=== PATIENT | male | born 1945 | race Caucasian/White ===

== ENCOUNTER 2018-12-29 14:35 | Emergency (ER) | payer MEDICARE, SELFPAY ==
[2018-12-29 14:39] VITALS: BP 159/103; PULSE 72; RESP 16; TEMP 36.4; O2SAT 96; BMI 34.5
--- NOTE | 2018-12-29 14:53 | DI.US.S_ITS ---
PROCEDURE: US PERIPH VENOUS LOW EXTREM LT INDICATIONS: EDEMA TECHNIQUE: Real-time imaging, as well as color and pulse Doppler interrogation, were performed of the lower extremity deep veins from the inguinal ligament to the popliteal fossa. COMPARISON: None. FINDINGS: The common femoral, femoral and popliteal veins are normally compressible, and free of intraluminal thrombus. Color and pulse Doppler demonstrate normal phasic intraluminal flow. There is normal augmentation response to distal compression maneuver. There is left lower leg superficial thrombophlebitis. IMPRESSION: No evidence of deep venous thrombosis. Superficial thrombophlebitis involving the left medial lower leg (in the region of clinical concern) Dictated by: Tom Alexander M.D. on 12/29/2018 at 15:50 Approved by: Tom Alexander M.D. on 12/29/2018 at 15:53
--- NOTE | 2018-12-29 15:12 | PC.NURSE ---
Denies chest pain, denies shortness of breath.
[2018-12-29 15:15] LABS: Add Manual Diff / Slide Review NO; Basophils Absolute Auto 100 /uL (0-100); Eosinophils Absolute Auto 100 /uL (0-450); Eosinophils Percent Auto 1.8 % (2-4); Hematocrit 43.1 % (41-53); Lymphocytes Absolute Auto 1600 /uL (1100-4500); Lymphocytes Percent Auto 21.9 % (25-40); Mean Corpuscular HGB Conc 34.8 % (30-36); Mean Corpuscular Hemoglobin 31.6 PG (26-34); Mean Corpuscular Volume 90.9 fL (80-100); Monocytes Absolute Auto 400 /uL (0-900); Monocytes Percent Auto 5.7 % (3-14); Neutrophils Absolute Auto 5100 /uL (1500-7000); Neutrophils Percent Auto 69.6 % (50-75); Platelet Count 246 X10^3/uL (150-400); Red Blood Cell Count 4.74 X10^6/uL (4.5-5.9); Red Cell Distribution Width 14.2 % (11.6-14.8); White Blood Cell Count 7.3 X10^3/uL (4.5-11.0)
[2018-12-29 15:22] LABS: INR 1.1 (0.9-1.3); Prothrombin Time 12.1 SECONDS (10.1-12.7)
[2018-12-29 15:25] LABS: PTT Partial Thromboplastin Tim 31 SECONDS (26.4-36.2)
[2018-12-29 15:26] LABS: Alanine Aminotransferase 44 IU/L (21-72); Albumin Globulin Ratio 1.4 (1.0-2.8); Alkaline Phosphatase 77 U/L (38-126); Aspartate Aminotransferase 30 IU/L (17-59); Bilirubin Total 0.5 mg/dL (0.2-1.3); Blood Urea Nitrogen 15 mg/dL (9-20); Calcium 9.6 mg/dL (8.4-10.2); Carbon Dioxide 31 mmol/L (22-32); Chloride 104 mmol/L (98-107); Estimated Glomerular Filt Rate > 60.0 mL/min (>60); Globulin 2.8 g/dL (1.7-4.1); Glucose 122 mg/dL (80-110); HEMOLYSIS 16 (0-50); Potassium 4.3 mmol/L (3.4-5.1); Sodium 139 mmol/L (137-145); Total Protein 6.8 g/dL (6.3-8.2)
--- NOTE | 2018-12-29 15:53 | ED.EXTPRO ---
HPI - Extremity Problem <Balwinder Camachodonna [facility] - Last Filed: 12/29/18 16:40> General Chief complaint: Extremity Problem,Nontraumatic Stated complaint: blood clot left leg Time Seen by Provider: 12/29/18 14:48 Source: patient Mode of arrival: Ambulatory Limitations: no limitations History of Present Illness HPI Narrative: This is a 73-year-old gentleman, nonsmoker, history of with DVTs in the past, bilateral pulmonary embolism in 2010, who presents to ED with spouse with left lower leg discomfort for last 4 days. Patient noticed left leg discomfort even while at rest since last night. Patient denies fever, chills, nausea vomiting. Patient denies chest pain or breathing difficulty. Patient has been taking EC aspirin 650 daily for Samter's Triad and after the ASA desensitization without GI irriation or bleedings. Related Data Home Medications Medication Instructions Recorded Confirmed aspirin 325 mg PO BID #0 10/06/15 fluticasone propionate [Flonase 1 spray INTRANASAL DAILY #1 bot 10/06/15 12/29/18 Allergy Relief] montelukast [Singulair] 10 mg PO DAILY #0 10/06/15 12/29/18 tamsulosin [Flomax] 0.8 mg PO DAILY #0 cap 10/06/15 12/29/18 amlodipine 5 mg PO DAILY 12/29/18 12/29/18 budesonide-formoterol [Symbicort] 1 puff INHALATION DIRECTED 12/29/18 latanoprost 1 drp OPHTHALMIC (EYE) BEDTIME 12/29/18 12/29/18 Allergies Allergy/AdvReac Type Severity Reaction Status Date / Time No Known Drug Allergies Allergy Verified 12/29/18 14:39 Review of Systems <Balwinder Camachodonna [facility] - Last Filed: 12/29/18 16:40> Review of Systems Narrative: General: Denies fever, chills, fatigue, malaise, sweats. HEENT: Denies sinus pain, ear pain, sore throat, difficulty swallowing, dizziness. Respiratory: Denies dyspnea, cough, wheezing, hemoptysis, sputum. Cardiovascular: See HPI Gastrointestinal: Denies nausea, vomiting, abdominal pain, diarrhea, constipation, melena. : Denies dysuria, frequency, incontinence, hematuria, urinary retention. Musculoskeletal: Denies weakness, joint pain or bony pain. Skin: Denies rash, skin lesions, or other. Neurologic: Denies weakness, headache, numbness, change in speech, confusion, seizures, incoordination. Psychiatric: No concerning psychosocial issues. 12-point review of systems is negative except for those stated above. Patient History <ROSE MARY Busby - Last Filed: 12/29/18 16:40> Medical History Asthma (Acute) DVT (deep venous thrombosis) (Acute) Nasal polyps (Acute) Pneumonia (Acute) Pulmonary embolism, bilateral (Acute) Surgical History History of cholecystectomy (Acute) Social History Smoking Status: Never smoker Substance Use Type: does not use Exam <ROSE MARY Busby - Last Filed: 12/29/18 16:40> Narrative Exam Narrative: General appearance: well developed, well nourished, in no acute distress. Head: normocephalic, atraumatic, no scalp lesions, non-tender. Eye: pupil equal, round. EOMI. Nose: nares patent. Oral: mucosa moist. Neck/Thyroid: neck supple, full range of motion, no visible masses. Heart: no clubbing, no cyanosis, no edema. Lungs: Breathing even and unlabored. No stridor. No accessory muscles used. Chest: normal shape and expansion. Abdomen: non-obese, non-distended. Neurologic: alert and oriented. Cognitive exam, [employer] and PNS grossly intact on informal exam. Psych: good eye contact, normal affect. Initial Vital Signs Initial Vital Signs: Vital Signs Temperature 97.5 F L 12/29/18 14:39 Pulse Rate 72 12/29/18 14:39 Respiratory Rate 16 12/29/18 14:39 Blood Pressure 159/103 H 12/29/18 14:39 Pulse Oximetry 96 12/29/18 14:39 Extrem Right lower extremity: normal to inspection, full ROM and foot Details: vascular exam Details: dorsalis pedis pulse present and normal capillary refill Left lower extremity: normal to inspection, full ROM, edema Details: non-pitting, lower leg Details: erythema (Medial/anteriorly) Location: of the distal lower leg (3/4 of the leg), tenderness and warmth; no palpable cords and foot Details: normal capillary refill and vascular exam Details: dorsalis pedis pulse present (Slightly decreased as compared right-sided) and normal capillary refill <Miguel Lawson DO - Last Filed: 12/29/18 16:56> Initial Vital Signs Initial Vital Signs: Vital Signs Temperature 97.5 F L 12/29/18 14:39 Pulse Rate 72 12/29/18 14:39 Respiratory Rate 16 12/29/18 14:39 Blood Pressure 159/103 H 12/29/18 14:39 Pulse Oximetry 96 12/29/18 14:39 Course <ROSE MARY Busby - Last Filed: 12/29/18 16:40> Orders Ordered: ED Orders 12/29/18 14:53 perip venous low extrem lt Stat 12/29/18 15:00 CBC Auto Diff [Complete Blood Count AUTO DIFF] Stat CMP [Comprehensive Metabolic Panel] Stat PT [Prothrombin Time INR] Stat PTT [Partial Thromboplastin Time] Stat Vital Signs Vital signs: Vital Signs - 8 hr 12/29/18 14:39 12/29/18 16:30 Temperature 97.5 F L Pulse Rate 72 67 Respiratory Rate 16 14 Blood Pressure 159/103 H 139/94 H Pulse Oximetry 96 94 <Miguel Lawson DO - Last Filed: 12/29/18 16:56> Orders Ordered: ED Orders 12/29/18 14:53 US perip venous low extrem lt Stat 12/29/18 15:00 CBC Auto Diff [Complete Blood Count AUTO DIFF] Stat CMP [Comprehensive Metabolic Panel] Stat PT [Prothrombin Time INR] Stat PTT [Partial Thromboplastin Time] Stat Vital Signs Vital signs: Vital Signs - 8 hr 12/29/18 14:39 12/29/18 16:30 Temperature 97.5 F L Pulse Rate 72 67 Respiratory Rate 16 14 Blood Pressure 159/103 H 139/94 H Pulse Oximetry 96 94 MDM - Extremity (Nontraumatic) <ROSE MARY Busby - Last Filed: 12/29/18 16:40> Differential Diagnosis Differential diagnosis: Likely cellulitis, superficial thrombophlebitis and deep vein thrombosis of lower extremity Medical Records Attestation: I reviewed the patient's medical records. Lab Data Result diagrams: 12/29/18 15:00 12/29/18 15:00 Labs: Lab Results 12/29/18 12/29/18 12/29/18 Range/Units 15:00 15:00 15:00 WBC 7.3 (4.5-11.0) X10^3/uL RBC 4.74 (4.5-5.9) X10^6/uL Hgb 15.0 (13.5-17.5) g/dL Hct 43.1 (41-53) % MCV 90.9 (80-100) fL MCH 31.6 (26-34) PG MCHC 34.8 (30-36) % RDW 14.2 (11.6-14.8) % Plt Count 246 (150-400) X10^3/uL Neut % (Auto) 69.6 (50-75) % Lymph % (Auto) 21.9 L (25-40) % [place] % (Auto) 5.7 (3-14) % Eos % (Auto) 1.8 L (2-4) % Baso % (Auto) 1.0 (0-2) % Neut # (Auto) 5100 (2091-3907) /uL Lymph # (Auto) 1600 (7607-9030) /uL [place] # (Auto) 400 (0-900) /uL Eos # (Auto) 100 (0-450) /uL Baso # (Auto) 100 (0-100) /uL PT 12.1 (10.1-12.7) SECONDS INR 1.1 (0.9-1.3) APTT 31 (26.4-36.2) SECONDS Sodium 139 (137-145) mmol/L Potassium 4.3 (3.4-5.1) mmol/L Chloride 104 (98-107) mmol/L Carbon Dioxide 31 (22-32) mmol/L BUN 15 (9-20) mg/dL Creatinine 1.00 (0.66-1.25) mg/dL Estimated GFR > 60.0 (>60) mL/min BUN/Creatinine Ratio 15.0 (6-22) Glucose 122 H (80-110) mg/dL Calcium 9.6 (8.4-10.2) mg/dL Total Bilirubin 0.5 (0.2-1.3) mg/dL AST 30 (17-59) IU/L ALT 44 (21-72) IU/L Alkaline Phosphatase 77 (38-126) U/L Total Protein 6.8 (6.3-8.2) g/dL Albumin 4.0 (3.5-5.0) g/dL Globulin 2.8 (1.7-4.1) g/dL Albumin/Globulin Ratio 1.4 (1.0-2.8) Imaging Data US-Doppler vein: Radiologist's impression: [address] [address] Ultrasound Report Signed Patient: Rancho RamosMR#: [id number] : 8Acct:[id number] Age/Sex: 73 / MDate of Service: 12/29/18 Loc: ED Accession Number: [id number] Procedure: US periph venous low extrem lt Ordering Provider: Balwinder Shepard PROCEDURE: US PERIPH VENOUS LOW EXTREM LT INDICATIONS: EDEMA TECHNIQUE: Real-time imaging, as well as color and pulse Doppler interrogation, were performed of the lower extremity deep veins from the inguinal ligament to the popliteal fossa. COMPARISON: None. FINDINGS: The common femoral, femoral and popliteal veins are normally compressible, and free of intraluminal thrombus. Color and pulse Doppler demonstrate normal phasic intraluminal flow. There is normal augmentation response to distal compression maneuver. There is left lower leg superficial thrombophlebitis. IMPRESSION: No evidence of deep venous thrombosis. Superficial thrombophlebitis involving the left medial lower leg (in the region of clinical concern) Dictated by: Tom Alexander M.D. on 12/29/2018 at 15:50 Approved by: Tom Alexander M.D. on 12/29/2018 at 15:53 MDM Narrative Medical decision making narrative: This is 73-year-old gentleman who presents with mild left lower leg discomfort, warmth, and redness for 4 days. He has history of DVTs, PE in the past. Is not currently taking anticoagulants at this time but is currently take 325 mg of aspirin b.i.d.. Patient denies constitutional symptoms. Blood tests were unremarkable with normal coag, no leukocytosis. Doppler ultrasound on left lower leg indicated superficial thrombophlebitis in medial lower leg. Patient advise elevation of affected leg, warm pack, compression stocking for varicose veins, and continue with his current medication regimen and return precautions were discussed. Patient and spouse verbalized understanding and agrees with treatment plan. <Miguel Lawson, DO - Last Filed: 12/29/18 16:56> Lab Data Labs: Lab Results 12/29/18 12/29/18 12/29/18 Range/Units 15:00 15:00 15:00 WBC 7.3 (4.5-11.0) X10^3/uL RBC 4.74 (4.5-5.9) X10^6/uL Hgb 15.0 (13.5-17.5) g/dL Hct 43.1 (41-53) % MCV 90.9 (80-100) fL MCH 31.6 (26-34) PG MCHC 34.8 (30-36) % RDW 14.2 (11.6-14.8) % Plt Count 246 (150-400) X10^3/uL Neut % (Auto) 69.6 (50-75) % Lymph % (Auto) 21.9 L (25-40) % [place] % (Auto) 5.7 (3-14) % Eos % (Auto) 1.8 L (2-4) % Baso % (Auto) 1.0 (0-2) % Neut # (Auto) 5100 (7327-6726) /uL Lymph # (Auto) 1600 (7804-3488) /uL [place] # (Auto) 400 (0-900) /uL Eos # (Auto) 100 (0-450) /uL Baso # (Auto) 100 (0-100) /uL PT 12.1 (10.1-12.7) SECONDS INR 1.1 (0.9-1.3) APTT 31 (26.4-36.2) SECONDS Sodium 139 (137-145) mmol/L Potassium 4.3 (3.4-5.1) mmol/L Chloride 104 (98-107) mmol/L Carbon Dioxide 31 (22-32) mmol/L BUN 15 (9-20) mg/dL Creatinine 1.00 (0.66-1.25) mg/dL Estimated GFR > 60.0 (>60) mL/min BUN/Creatinine Ratio 15.0 (6-22) Glucose 122 H (80-110) mg/dL Calcium 9.6 (8.4-10.2) mg/dL Total Bilirubin 0.5 (0.2-1.3) mg/dL AST 30 (17-59) IU/L ALT 44 (21-72) IU/L Alkaline Phosphatase 77 (38-126) U/L Total Protein 6.8 (6.3-8.2) g/dL Albumin 4.0 (3.5-5.0) g/dL Globulin 2.8 (1.7-4.1) g/dL Albumin/Globulin Ratio 1.4 (1.0-2.8) Discharge Plan Departure Patient Disposition: Home Clinical Impression: Superficial thrombophlebitis of left leg Discharge Date/Time: 12/29/18 16:31 Instructions: DI for Superficial Thrombophlebitis Activity Restrictions/Additional Instructions: You have been diagnosed with [superficial thrombophlebitis on left lower leg her ultrasound test. Blood tests are unremarkable today. Elevate affected leg, warm compresses, compression stocking if you have varicose veins should help with this.]. What to do: *Take your medications as directed. You can continue with her medication regimen. *Follow up with your primary care provider in 2-3 days, Dr. Olivo, call for an appointment. Let them know you were seen in the ED and that we asked you to be seen in follow up. *Return to ED if you have any new, worsening, or concerning symptoms, such as [fever, increasing pain/swelling/erythema, chest pain, breathing difficulty, drainage from lower leg or any acute concerns]. Prescriptions: No Action tamsulosin [Flomax] 0.4 MG capsule,extended release 24hr 0.8 mg PO DAILY Qty: 0 RF: 0 montelukast [Singulair] 10 MG tablet 10 mg PO DAILY Qty: 0 RF: 0 fluticasone propionate [Flonase Allergy Relief] 9.9 ML spray,suspension 1 spray Intranasal DAILY Qty: 1 RF: 0 aspirin 325 MG tablet,delayed release (DR/EC) 325 mg PO BID Qty: 0 RF: 0 latanoprost 0.005 % drops 1 drp ophthalmic (eye) BEDTIME RF: 0 amlodipine 5 mg tablet 5 mg PO DAILY RF: 0 Symbicort 160-4.5 mcg/actuation HFA aerosol inhaler 1 puff INHALATION DIRECTED RF: 0 <Miguel Lawson, DO - Last Filed: 12/29/18 16:56> Sign Out Provider Sign Out Attestation: Dr Lawson Co-Sign Statement: I was available for consultation during this patient's emergency department visit. This chart is signed by myself for administrative purposes only. I did not have direct contact with this patient during this visit. They were seen independently by the APC.
[2018-12-29 16:30] VITALS: BP 139/94; PULSE 67; RESP 14; O2SAT 94
== END 2018-12-29 16:31 | disposition home or self-care (01) ==
PROVIDERS: Emergency Provider Nurse Practitioner Family
DX: I80.02 Phlebitis and thrombophlebitis of superficial vessels of left lower extremity (principal); Z79.82 Long term (current) use of aspirin; Z86.718 Personal history of other venous thrombosis and embolism
CPT/HCPCS: 36415; 80053; 85025; 85610; 85730; 93971; 99282; 99284